=== PATIENT | female | born 1955 | race Caucasian/White ===

== ENCOUNTER 2017-04-02 17:29 | Inpatient (IN) | payer MEDICARE, MEDICAID ==
[~2017-04-02] VITALS: Ht 167.6 cm; Wt 95.2 kg
[~2017-04-02 17:29] MED LIST: AMOX1TAB64 PO; ATOR20TA9 PO; DULO60CA7 PO; LISI-170 PO; LORA2TAB PO; METH40TA3 PO; TIOT18CA INH
[2017-04-02] MEDS ORDERED: ACETAMINOPHEN 500 MG TABLET PO ONE (18:00)
[2017-04-02] MEDS ORDERED: SODIUM CHLORIDE FLUSH 10ML SYR IVF ONE (18:00)
[2017-04-02] MEDS ORDERED: methylPREDNISolone SOD SUCC 125 MG/2 ML IVP ONE (18:00)
[2017-04-02] MEDS ORDERED: methylPREDNISolone SOD SUCC 125 MG/2 ML ONE (18:05)
[2017-04-02] MEDS ORDERED: ACETAMINOPHEN 500 MG TABLET ONE (18:05)
[2017-04-02] MEDS ORDERED: ALBUTEROL/IPRATROPIUM 2.5MG/0.5MG, 3 ML ONE (18:06)
[2017-04-02] MEDS: ALBUTEROL/IPRATROPIUM 2.5MG/0.5MG, 3 ML NPPB SCH (18:11)
[2017-04-02 18:15] LABS: ABG COLLECTION SITE RIGHT RADIAL; COLLATERAL CIRCULATION TESTING NORMAL
[2017-04-02 18:20] LABS: HEMATOCRIT 32.4 % (34.6-47.8); HEMOGLOBIN 10.4 g/dL (11.7-16.4); WHITE BLOOD COUNT 11.9 x10^3/uL (3.4-10)
[2017-04-02 18:29] LABS: ASPARTATE AMINO TRANSFERASE 31 U/L (15-37); BLOOD UREA NITROGEN 12 mg/dL (7-18)
[2017-04-02 18:34] LABS: IS PT STATUS REG ER OR PRE ER? YES
[2017-04-02] MEDS ORDERED: OMNIPAQUE 350 MG/ML, 100ML BOTTLE ONE (18:42)
[2017-04-02] MEDS ORDERED: FURO40TA6 PO (19:18)
[2017-04-02] MEDS ORDERED: FLUO40CA9 PO (19:18)
[2017-04-02] MEDS ORDERED: CEFTRIAXONE PMX 1GM/50ML 50 ML IV ONE (20:00)
[2017-04-02] MEDS ORDERED: CEFTRIAXONE PMX 1GM/50ML 50 ML ONE (20:01)
[2017-04-02] MEDS ORDERED: VANCOMYCIN PER PHARMACY MC PRN (20:30)
[2017-04-02] MEDS ORDERED: NICOTINE 14MG/24 HR PATCH.TD24 ONE (20:47)
[2017-04-02] MEDS ORDERED: PIPERACILLIN/TAZO/PMX 3.375GM 50 ML ONE (20:47)
[2017-04-02] MEDS ORDERED: ENOXAPARIN 40 MG/0.4 ML ONE (20:47)
[2017-04-02] MEDS: PIPERACILLIN/TAZO/PMX 3.375GM 50 ML IV SCH (20:56)
[2017-04-02] MEDS: ENOXAPARIN 40 MG/0.4 ML SQ SCH (20:57)
[2017-04-02] MEDS: NICOTINE 14MG/24 HR PATCH.TD24 TD SCH (20:57)
[2017-04-02] MEDS: LACTATED RINGERS 1,000 ML IV SCH (22:06)
[2017-04-02] MEDS ORDERED: PHARMACOKINETIC MONITORING MC PRN (22:30)
[2017-04-02] MEDS ORDERED: PHARMACOKINETIC CONSULTATION MC ONE (22:30)
[2017-04-02] MEDS ORDERED: IPRATROPIUM 0.5 MG/2.5 ML INHA NPPB SCH (22:30)
[2017-04-02] MEDS: ATORVASTATIN 20 MG TABLET PO SCH (23:45)
[2017-04-02] MEDS: VANCOMYCIN 1,600 MG in SODIUM CHLORIDE 0.9% 250 ML IV SCH (23:47)
[2017-04-03 00:26] VITALS: BP 112/69
[2017-04-03 01:00] VITALS: BP 92/53
[2017-04-03] MEDS: PIPERACILLIN/TAZO/PMX 3.375GM 50 ML IV SCH ×4 (02:46→21:28)
[2017-04-03 05:48] LABS: HEMATOCRIT 31.2 % (34.6-47.8); HEMOGLOBIN 10.3 g/dL (11.7-16.4); WHITE BLOOD COUNT 10.4 x10^3/uL (3.4-10)
[2017-04-03 06:24] LABS: ASPARTATE AMINO TRANSFERASE 27 U/L (15-37); BLOOD UREA NITROGEN 15 mg/dL (7-18)
[2017-04-03] MEDS: ALBUTEROL/IPRATROPIUM 2.5MG/0.5MG, 3 ML NPPB SCH ×4 (07:00→19:33)
[2017-04-03 07:48] VITALS: BP 97/48
[2017-04-03] MEDS ORDERED: METHADONE 40 MG TABLET.SOL PO SCH (09:00)
[2017-04-03] MEDS: FLUOXETINE 20 MG CAPSULE PO SCH (09:37)
[2017-04-03] MEDS: FUROSEMIDE 40 MG TABLET PO SCH (09:37)
[2017-04-03] MEDS: LISINOPRIL 20 MG TABLET PO SCH (09:40)
[2017-04-03] MEDS ORDERED: METHADONE INTENSOL 10 MG/ML ORAL CONC PO SCH (10:00)
[2017-04-03] MEDS: METHADONE 10 MG TABLET PO SCH (10:44)
[2017-04-03] MEDS: METHADONE 5 MG TABLET PO SCH (10:44)
[2017-04-03 14:45] VITALS: BP 111/61
[2017-04-03 20:01] VITALS: BP 116/64
[2017-04-03] MEDS: ENOXAPARIN 40 MG/0.4 ML SQ SCH (20:20)
[2017-04-03] MEDS: NICOTINE 14MG/24 HR PATCH.TD24 TD SCH (20:20)
[2017-04-03] MEDS: ATORVASTATIN 20 MG TABLET PO SCH (20:20)
[2017-04-03] MEDS: LACTATED RINGERS 1,000 ML IV SCH (20:20)
[2017-04-03] MEDS: LORazepam 1MG TABLET PO PRN (20:30)
[2017-04-03] MEDS: VANCOMYCIN 1,600 MG in SODIUM CHLORIDE 0.9% 250 ML IV SCH (23:09)
[2017-04-04 00:46] VITALS: BP 149/84
[2017-04-04] MEDS: LORazepam 1MG TABLET PO PRN ×2 (00:56→06:12)
[2017-04-04] MEDS: ALBUTEROL/IPRATROPIUM 2.5MG/0.5MG, 3 ML NPPB SCH ×7 (01:29→23:15)
[2017-04-04] MEDS: PIPERACILLIN/TAZO/PMX 3.375GM 50 ML IV SCH ×4 (03:56→22:41)
[2017-04-04 04:22] LABS: HEMATOCRIT 34.8 % (34.6-47.8); WHITE BLOOD COUNT 19.3 x10^3/uL (3.4-10)
[2017-04-04 04:29] LABS: BLOOD UREA NITROGEN 18 mg/dL (7-18)
[2017-04-04 04:30] LABS: ASPARTATE AMINO TRANSFERASE 151 U/L (15-37)
[2017-04-04] MEDS: LACTATED RINGERS 1,000 ML IV SCH (05:43)
[2017-04-04 06:46] LABS: ABG COLLECTION SITE RIGHT BRACHIAL; COLLATERAL CIRCULATION TESTING NORMAL
[2017-04-04 06:52] VITALS: BP 132/63
[2017-04-04] MEDS ORDERED: FUROSEMIDE 20 MG/2 ML IV ONE ×2 (07:00→08:00)
[2017-04-04] MEDS: METHADONE 10 MG TABLET PO SCH (08:31)
[2017-04-04] MEDS: METHADONE 5 MG TABLET PO SCH (08:32)
[2017-04-04] MEDS: FUROSEMIDE 40 MG TABLET PO SCH (08:32)
[2017-04-04] MEDS: FLUOXETINE 20 MG CAPSULE PO SCH (08:32)
[2017-04-04] MEDS: LISINOPRIL 20 MG TABLET PO SCH (08:33)
[2017-04-04] MEDS ORDERED: METHADONE 5 MG TABLET PO SCH (09:00)
[2017-04-04] MEDS ORDERED: METHADONE INTENSOL 10 MG/ML ORAL CONC PO SCH (09:00)
[2017-04-04] MEDS ORDERED: METHADONE 10 MG TABLET PO SCH (09:00)
[2017-04-04 12:50] VITALS: BP 118/62
[2017-04-04 18:57] VITALS: BP 99/55
[2017-04-04] MEDS ORDERED: FUROSEMIDE 40 MG/4 ML IV ONE (20:00)
[2017-04-04] MEDS ORDERED: FUROSEMIDE 20 MG/2 ML ONE (20:04)
[2017-04-04] MEDS ORDERED: methylPREDNISolone SOD SUCC 125 MG/2 ML IVPush SCH (20:30)
[2017-04-04] MEDS: ENOXAPARIN 40 MG/0.4 ML SQ SCH (20:49)
[2017-04-04] MEDS: NICOTINE 14MG/24 HR PATCH.TD24 TD SCH (20:50)
[2017-04-04] MEDS: ATORVASTATIN 20 MG TABLET PO SCH (20:50)
[2017-04-04] MEDS: VANCOMYCIN 1,600 MG in SODIUM CHLORIDE 0.9% 250 ML IV SCH (23:16)
[2017-04-05] MEDS: PIPERACILLIN/TAZO/PMX 3.375GM 50 ML IV SCH ×3 (04:00→18:48)
[2017-04-05] MEDS: ALBUTEROL/IPRATROPIUM 2.5MG/0.5MG, 3 ML NPPB SCH ×6 (06:28→21:45)
[2017-04-05] MEDS: METHADONE 5 MG TABLET PO SCH (08:30)
[2017-04-05] MEDS: LISINOPRIL 20 MG TABLET PO SCH (08:30)
[2017-04-05] MEDS: FLUOXETINE 20 MG CAPSULE PO SCH (08:30)
[2017-04-05] MEDS: FUROSEMIDE 40 MG TABLET PO SCH (08:30)
[2017-04-05] MEDS: METHADONE 10 MG TABLET PO SCH (08:30)
[2017-04-05] MEDS: methylPREDNISolone SOD SUCC 125 MG/2 ML IVPush SCH ×3 (08:30→20:21)
[2017-04-05] MEDS ORDERED: methylPREDNISolone SOD SUCC 125 MG/2 ML IVPush SCH (09:00)
[2017-04-05 10:25] LABS: HEMATOCRIT 33.1 % (34.6-47.8); HEMOGLOBIN 10.9 g/dL (11.7-16.4); WHITE BLOOD COUNT 10.7 x10^3/uL (3.4-10)
[2017-04-05 10:52] LABS: BLOOD UREA NITROGEN 20 mg/dL (7-18)
[2017-04-05 10:53] LABS: ASPARTATE AMINO TRANSFERASE 61 U/L (15-37)
[2017-04-05 11:17] LABS: ABG COLLECTION SITE RIGHT RADIAL; COLLATERAL CIRCULATION TESTING NORMAL
[2017-04-05 11:18] LABS: FIO2 85 %
[2017-04-05] MEDS: VANCOMYCIN 1,600 MG in SODIUM CHLORIDE 0.9% 250 ML IV SCH (16:04)
[2017-04-05] MEDS: ENOXAPARIN 40 MG/0.4 ML SQ SCH (20:21)
[2017-04-05] MEDS: NICOTINE 14MG/24 HR PATCH.TD24 TD SCH (20:21)
[2017-04-05] MEDS: ATORVASTATIN 20 MG TABLET PO SCH (20:21)
[2017-04-06] MEDS: PIPERACILLIN/TAZO/PMX 3.375GM 50 ML IV SCH ×4 (00:02→19:35)
[2017-04-06] MEDS: ALBUTEROL/IPRATROPIUM 2.5MG/0.5MG, 3 ML NPPB SCH ×6 (01:58→21:44)
[2017-04-06] MEDS: methylPREDNISolone SOD SUCC 125 MG/2 ML IVPush SCH ×4 (03:25→20:52)
[2017-04-06 03:37] VITALS: BP 98/54
[2017-04-06 03:51] LABS: BLOOD UREA NITROGEN 36 mg/dL (7-18)
[2017-04-06 03:55] LABS: ASPARTATE AMINO TRANSFERASE 105 U/L (15-37)
[2017-04-06 04:24] LABS: HEMATOCRIT 32.1 % (34.6-47.8); HEMOGLOBIN 10.4 g/dL (11.7-16.4); WHITE BLOOD COUNT 13.7 x10^3/uL (3.4-10)
[2017-04-06] MEDS: FLUOXETINE 20 MG CAPSULE PO SCH (08:24)
[2017-04-06] MEDS: LISINOPRIL 20 MG TABLET PO SCH (08:24)
[2017-04-06] MEDS: FUROSEMIDE 40 MG TABLET PO SCH (08:24)
[2017-04-06] MEDS ORDERED: METHADONE 10 MG TABLET ONE (08:29)
[2017-04-06] MEDS: METHADONE 10 MG TABLET PO SCH (08:31)
[2017-04-06] MEDS: METHADONE 5 MG TABLET PO SCH (08:32)
[2017-04-06] MEDS ORDERED: POTASSIUM CHLORIDE 20 MEQ TAB.ER.PRT PO ONE (10:30)
[2017-04-06] MEDS: VANCOMYCIN 1,600 MG in SODIUM CHLORIDE 0.9% 250 ML IV SCH (17:33)
[2017-04-06] MEDS: ENOXAPARIN 40 MG/0.4 ML SQ SCH (20:52)
[2017-04-06] MEDS: ATORVASTATIN 20 MG TABLET PO SCH (20:52)
[2017-04-06] MEDS: NICOTINE 14MG/24 HR PATCH.TD24 TD SCH (20:52)
[2017-04-07] MEDS: PIPERACILLIN/TAZO/PMX 3.375GM 50 ML IV SCH ×4 (01:18→21:07)
[2017-04-07] MEDS: ALBUTEROL/IPRATROPIUM 2.5MG/0.5MG, 3 ML NPPB SCH ×7 (03:00→23:45)
[2017-04-07] MEDS: methylPREDNISolone SOD SUCC 125 MG/2 ML IVPush SCH ×4 (03:53→21:06)
[2017-04-07 04:03] LABS: HEMATOCRIT 33.1 % (34.6-47.8); HEMOGLOBIN 10.6 g/dL (11.7-16.4); WHITE BLOOD COUNT 15.5 x10^3/uL (3.4-10)
[2017-04-07 04:15] LABS: ASPARTATE AMINO TRANSFERASE 115 U/L (15-37); BLOOD UREA NITROGEN 47 mg/dL (7-18)
[2017-04-07 04:45] VITALS: BP 104/58
[2017-04-07] MEDS: LISINOPRIL 20 MG TABLET PO SCH (07:57)
[2017-04-07] MEDS: FLUOXETINE 20 MG CAPSULE PO SCH (07:57)
[2017-04-07] MEDS: METHADONE 10 MG TABLET PO SCH (08:03)
[2017-04-07] MEDS ORDERED: METHADONE 10 MG TABLET PO ONE (10:00)
[2017-04-07] MEDS: NICOTINE 14MG/24 HR PATCH.TD24 TD SCH (21:07)
[2017-04-07] MEDS: ATORVASTATIN 20 MG TABLET PO SCH (21:07)
[2017-04-07] MEDS: ENOXAPARIN 40 MG/0.4 ML SQ SCH (21:07)
[2017-04-08] MEDS: PIPERACILLIN/TAZO/PMX 3.375GM 50 ML IV SCH ×4 (01:20→20:13)
[2017-04-08 01:54] VITALS: BP 116/65
[2017-04-08] MEDS: methylPREDNISolone SOD SUCC 125 MG/2 ML IVPush SCH ×4 (03:29→20:12)
[2017-04-08] MEDS: ALBUTEROL/IPRATROPIUM 2.5MG/0.5MG, 3 ML NPPB SCH ×2 (03:40→07:00)
[2017-04-08 04:08] LABS: HEMATOCRIT 33.7 % (34.6-47.8); HEMOGLOBIN 10.9 g/dL (11.7-16.4); WHITE BLOOD COUNT 14.5 x10^3/uL (3.4-10)
[2017-04-08 04:21] LABS: ASPARTATE AMINO TRANSFERASE 63 U/L (15-37); BLOOD UREA NITROGEN 39 mg/dL (7-18)
[2017-04-08 07:39] VITALS: BP 133/72
[2017-04-08] MEDS ORDERED: METHADONE 10 MG TABLET PO SCH (09:00)
[2017-04-08] MEDS: METHADONE 10 MG TABLET PO SCH ×3 (09:18→20:13)
[2017-04-08] MEDS: LISINOPRIL 20 MG TABLET PO SCH (09:18)
[2017-04-08] MEDS: FLUOXETINE 20 MG CAPSULE PO SCH (09:18)
[2017-04-08] MEDS: ALBUTEROL/IPRATROPIUM 2.5MG/0.5MG, 3 ML NPPB PRN (11:05)
[2017-04-08] MEDS ORDERED: VANCOMYCIN 1,600 MG in SODIUM CHLORIDE 0.9% 250 ML IV SCH (13:00)
[2017-04-08 14:35] VITALS: BP 123/73
[2017-04-08 20:00] VITALS: BP 143/80
[2017-04-08] MEDS: NICOTINE 14MG/24 HR PATCH.TD24 TD SCH (20:13)
[2017-04-08] MEDS: ATORVASTATIN 20 MG TABLET PO SCH (20:13)
[2017-04-08] MEDS: ENOXAPARIN 40 MG/0.4 ML SQ SCH (20:14)
[2017-04-09 01:10] VITALS: BP 151/82
[2017-04-09] MEDS: PIPERACILLIN/TAZO/PMX 3.375GM 50 ML IV SCH (02:09)
[2017-04-09] MEDS: ONDANSETRON 2MG/ML, 2ML IVPush PRN ×2 (02:21→14:03)
[2017-04-09] MEDS: ALBUTEROL/IPRATROPIUM 2.5MG/0.5MG, 3 ML NPPB PRN (02:28)
[2017-04-09] MEDS: methylPREDNISolone SOD SUCC 125 MG/2 ML IVPush SCH ×2 (03:08→08:27)
[2017-04-09 04:35] LABS: HEMATOCRIT 36.7 % (34.6-47.8); HEMOGLOBIN 11.7 g/dL (11.7-16.4); WHITE BLOOD COUNT 17.7 x10^3/uL (3.4-10)
[2017-04-09 04:46] LABS: BLOOD UREA NITROGEN 40 mg/dL (7-18)
[2017-04-09 04:50] LABS: ASPARTATE AMINO TRANSFERASE 40 U/L (15-37)
[2017-04-09] MEDS: METHADONE 10 MG TABLET PO SCH ×3 (08:27→20:07)
[2017-04-09] MEDS: FLUOXETINE 20 MG CAPSULE PO SCH (08:27)
[2017-04-09] MEDS: LISINOPRIL 20 MG TABLET PO SCH (08:27)
[2017-04-09] MEDS: AMPICILLIN/SULBACTAM 3 GM in SODIUM CHLORIDE 0.9% 100 ML IV SCH ×3 (08:33→20:06)
[2017-04-09 09:38] VITALS: BP 150/88
[2017-04-09] MEDS: methylPREDNISolone SOD SUCC 40 MG/ML IVPush SCH (16:13)
[2017-04-09 17:02] VITALS: BP 159/90
[2017-04-09] MEDS: BISACODYL 10 MG SUPP PR PRN (17:16)
[2017-04-09] MEDS ORDERED: ACETAMINOPHEN 325 MG TABLET PO PRN (17:30)
[2017-04-09 18:59] VITALS: BP 153/87
[2017-04-09] MEDS: NICOTINE 14MG/24 HR PATCH.TD24 TD SCH (20:07)
[2017-04-09] MEDS: ATORVASTATIN 20 MG TABLET PO SCH (20:07)
[2017-04-09] MEDS: ENOXAPARIN 40 MG/0.4 ML SQ SCH (20:07)
[2017-04-10] MEDS: AMPICILLIN/SULBACTAM 3 GM in SODIUM CHLORIDE 0.9% 100 ML IV SCH ×4 (01:30→19:53)
[2017-04-10 02:12] VITALS: BP 145/74
[2017-04-10] MEDS: methylPREDNISolone SOD SUCC 40 MG/ML IVPush SCH ×3 (03:05→18:31)
[2017-04-10 05:12] LABS: BLOOD UREA NITROGEN 41 mg/dL (7-18); HEMATOCRIT 39.9 % (34.6-47.8); HEMOGLOBIN 12.8 g/dL (11.7-16.4); WHITE BLOOD COUNT 21.7 x10^3/uL (3.4-10)
[2017-04-10 07:35] VITALS: BP 132/83
[2017-04-10] MEDS: METHADONE 10 MG TABLET PO SCH ×3 (08:15→21:10)
[2017-04-10] MEDS: FLUOXETINE 20 MG CAPSULE PO SCH (08:16)
[2017-04-10] MEDS: LISINOPRIL 20 MG TABLET PO SCH (08:16)
[2017-04-10] MEDS ORDERED: LACTULOSE 20 GM/30 ML UDC PO PRN (11:30)
[2017-04-10 12:48] VITALS: BP 146/73
[2017-04-10] MEDS: BISACODYL 10 MG SUPP PR PRN (15:56)
[2017-04-10 19:10] VITALS: BP 168/96
[2017-04-10] MEDS ORDERED: ONDANSETRON 2MG/ML, 2ML IVPush PRN (19:30)
[2017-04-10] MEDS: NICOTINE 14MG/24 HR PATCH.TD24 TD SCH (21:10)
[2017-04-10] MEDS: ENOXAPARIN 40 MG/0.4 ML SQ SCH (21:10)
[2017-04-10] MEDS: ATORVASTATIN 20 MG TABLET PO SCH (21:10)
[2017-04-11 00:40] VITALS: BP 186/106
[2017-04-11] MEDS ORDERED: hydrALAzine 20 MG/ML, 1ML IV PRN (01:00)
[2017-04-11] MEDS: AMPICILLIN/SULBACTAM 3 GM in SODIUM CHLORIDE 0.9% 100 ML IV SCH ×4 (01:51→21:35)
[2017-04-11] MEDS: methylPREDNISolone SOD SUCC 40 MG/ML IVPush SCH (03:26)
[2017-04-11 05:14] LABS: HEMATOCRIT 43.2 % (34.6-47.8); HEMOGLOBIN 13.9 g/dL (11.7-16.4); WHITE BLOOD COUNT 24.1 x10^3/uL (3.4-10)
[2017-04-11 05:40] LABS: BLOOD UREA NITROGEN 33 mg/dL (7-18)
[2017-04-11 06:03] LABS: DIFF TOTAL CELLS COUNTED 100 CELL DIFF
[2017-04-11 06:05] LABS: VERIFY COUNTS? YES
[2017-04-11 06:06] LABS: ANISOCYTOSIS 1+; OVALOCYTES 1+; POIKILOCYTOSIS 1+
[2017-04-11 07:21] VITALS: BP 162/89
[2017-04-11] MEDS: METHADONE 10 MG TABLET PO SCH ×3 (08:56→21:37)
[2017-04-11] MEDS: FLUOXETINE 20 MG CAPSULE PO SCH (08:56)
[2017-04-11] MEDS: LISINOPRIL 20 MG TABLET PO SCH (08:58)
[2017-04-11] MEDS: LACTULOSE 20 GM/30 ML UDC PO SCH ×2 (09:00→21:00)
[2017-04-11] MEDS ORDERED: methylPREDNISolone SOD SUCC 40 MG/ML IVPush SCH (09:00)
[2017-04-11] MEDS ORDERED: OMNIPAQUE 350 MG/ML, 100ML BOTTLE ONE (09:41)
[2017-04-11] MEDS: DOXYCYCLINE 100 MG in DEXTROSE 5% 250 ML IV SCH ×2 (11:00→20:07)
[2017-04-11 13:56] VITALS: BP 153/90
[2017-04-11] MEDS: NICOTINE 14MG/24 HR PATCH.TD24 TD SCH (20:07)
[2017-04-11 21:32] VITALS: BP 121/65
[2017-04-11] MEDS: ENOXAPARIN 40 MG/0.4 ML SQ SCH (21:36)
[2017-04-11] MEDS: ATORVASTATIN 20 MG TABLET PO SCH (21:37)
[2017-04-12 02:14] VITALS: BP 102/57
[2017-04-12] MEDS: AMPICILLIN/SULBACTAM 3 GM in SODIUM CHLORIDE 0.9% 100 ML IV SCH ×2 (03:13→09:27)
[2017-04-12 07:00] VITALS: BP 113/67
[2017-04-12] MEDS: DOXYCYCLINE 100 MG in DEXTROSE 5% 250 ML IV SCH (08:16)
[2017-04-12 08:20] LABS: HEMATOCRIT 37.9 % (34.6-47.8); HEMOGLOBIN 12.5 g/dL (11.7-16.4); WHITE BLOOD COUNT 15.9 x10^3/uL (3.4-10)
[2017-04-12 08:41] LABS: BLOOD UREA NITROGEN 27 mg/dL (7-18)
[2017-04-12 08:42] LABS: DIFF TOTAL CELLS COUNTED 100 CELL DIFF
[2017-04-12 08:45] LABS: ANISOCYTOSIS 1+; OVALOCYTES 1+; POIKILOCYTOSIS 1+; VERIFY COUNTS? YES
[2017-04-12] MEDS: METHADONE 10 MG TABLET PO SCH ×3 (09:27→22:23)
[2017-04-12] MEDS: LISINOPRIL 20 MG TABLET PO SCH (09:28)
[2017-04-12] MEDS: FLUOXETINE 20 MG CAPSULE PO SCH (09:28)
[2017-04-12] MEDS: LACTULOSE 20 GM/30 ML UDC PO SCH ×2 (10:55→21:00)
[2017-04-12 15:14] VITALS: BP 112/62
[2017-04-12 20:15] VITALS: BP 96/61
[2017-04-12] MEDS: NICOTINE 14MG/24 HR PATCH.TD24 TD SCH (22:23)
[2017-04-12] MEDS: DOXYCYCLINE 100MG TABLET PO SCH (22:23)
[2017-04-12] MEDS: ATORVASTATIN 20 MG TABLET PO SCH (22:23)
[2017-04-12] MEDS: ENOXAPARIN 40 MG/0.4 ML SQ SCH (22:25)
[2017-04-13 03:37] VITALS: BP 96/50
[2017-04-13 07:30] VITALS: BP 100/63
[2017-04-13] MEDS: METHADONE 10 MG TABLET PO SCH (08:15)
[2017-04-13] MEDS: FLUOXETINE 20 MG CAPSULE PO SCH (08:16)
[2017-04-13] MEDS: DOXYCYCLINE 100MG TABLET PO SCH (08:16)
[2017-04-13] MEDS: LISINOPRIL 20 MG TABLET PO SCH (08:16)
[2017-04-13] MEDS: LACTULOSE 20 GM/30 ML UDC PO SCH (08:17)
[2017-04-13 08:47] LABS: HEMATOCRIT 38.9 % (34.6-47.8); HEMOGLOBIN 12.7 g/dL (11.7-16.4); WHITE BLOOD COUNT 14.4 x10^3/uL (3.4-10)
[2017-04-13 08:58] LABS: BLOOD UREA NITROGEN 27 mg/dL (7-18)
[2017-04-13] MEDS ORDERED: DOXY100T PO (09:29)
[2017-04-13] MEDS ORDERED: METH4TAB2 PO (09:29)
[2017-04-13] MEDS ORDERED: ENOXAPARIN 40 MG/0.4 ML SQ SCH (21:00)
== END 2017-04-13 14:11 | disposition home or self-care (01) | DRG 871 ==
LOC: ED 19:44 → EDIP 19:45 → INTOOBSV 19:45 → 4WST 22:18 → OBSVTOIN 04-03 09:32 → 4WST 04-03 17:58 → CSU 04-05 09:10 → 4EST 04-07 18:56 → DCLOUNGE 04-13 13:38
PROVIDERS: ADMIT Hospitalist; ATTEND Internal Medicine
PROC: 02HV33Z Insertion of Infusion Device into Superior Vena Cava, Percutaneous Approach (ICD-10-PCS; principal; 2017-04-03)
PROC: B548ZZA Ultrasonography of Superior Vena Cava, Guidance (ICD-10-PCS; 2017-04-03)
DX: A41.9 Sepsis, unspecified organism (principal); J96.21 Acute and chronic respiratory failure with hypoxia; E43 Unspecified severe protein-calorie malnutrition; I50.33 Acute on chronic diastolic (congestive) heart failure; J18.9 Pneumonia, unspecified organism; I11.0 Hypertensive heart disease with heart failure; L03.116 Cellulitis of left lower limb; J44.0 Chronic obstructive pulmonary disease with (acute) lower respiratory infection; J44.1 Chronic obstructive pulmonary disease with (acute) exacerbation; I27.2 Other secondary pulmonary hypertension; D64.9 Anemia, unspecified; F17.210 Nicotine dependence, cigarettes, uncomplicated; F19.10 Other psychoactive substance abuse, uncomplicated; E78.5 Hyperlipidemia, unspecified; F11.10 Opioid abuse, uncomplicated; E66.9 Obesity, unspecified; N28.9 Disorder of kidney and ureter, unspecified; Z99.81 Dependence on supplemental oxygen; Z68.33 Body mass index [BMI] 33.0-33.9, adult; Z88.8 Allergy status to other drugs, medicaments and biological substances
CPT/HCPCS: 36415; 36569; 36600; 71010; 71275; 74000; 74177; 76937; 77001; 80048; 80053; 80202; 81003; 82803; 83605; 83735; 83880; 84100; 84145; 84443; 84484; 85025; 85379; 85610; 85651; 87040; 87070; 87081; 87205; 93005; 93306; 94640; 96374; G0378; J0295; J0696; J1650; J1940; J2405; J2543; J3370; J7060; J7620; Q9967; C1751; J0360; J2920; J2930; J7050; J7120